=== PATIENT | male | born 1975 | race Caucasian/White ===

== ENCOUNTER 2023-12-23 03:09 | Emergency (ER) | payer OTHER ==
[~2023-12-23] VITALS: Ht 172.7 cm; Wt 79.8 kg
[2023-12-23 03:13] VITALS: BP 158/90; PULSE 80; RESP 16; TEMP 97.5; O2SAT 96
[2023-12-23 03:31] VITALS: TEMP 97.5
[2023-12-23 05:32] VITALS: BP 145/86; PULSE 77; RESP 16; O2SAT 96
== END 2023-12-23 05:40 | disposition home or self-care (01) ==
LOC: MED 03:09
DX: F10.129 Alcohol abuse with intoxication, unspecified (principal); Y90.9 Presence of alcohol in blood, level not specified
CPT/HCPCS: 99283